=== PATIENT | female | born 1990 | race Caucasian/White ===

== ENCOUNTER 2022-12-29 16:37 | Emergency (ER) | payer SELFPAY ==
[~2022-12-29] VITALS: Ht 152.4 cm; Wt 47.7 kg
[2022-12-29 18:25] LABS: BASO # 0.05 K/mm3 (0.02-0.10); EOS # 0.22 K/mm3 (0.04-0.40); EOS % 2.8 % (1.0-5.0); HEMATOCRIT 45.9 % (37.0-47.0); HEMOGLOBIN 15.3 g/dL (12.5-16.0); LYMPH# 3.17 K/mm3 (1.50-4.00); MEAN CELL VOLUME 87 fl (78-100); MEAN CORPUSCULAR HEMOGLOBIN 29 pg (27-31); MEAN CORPUSCULAR HGB CONC 33 g/dL (33-37); MEAN PLATELET VOLUME 10.1 fl (7.4-10.4); MONO # 0.43 K/mm3 (0.20-0.80); NEU # 4.06 K/mm3 (1.40-6.50); PLATELET COUNT 328 K/mm3 (130-400); RED BLOOD COUNT 5.25 M/mm3 (4.10-5.30); RED CELL DISTRIBUTION WIDTH 11.8 % (11.5-14.5); WHITE BLOOD COUNT 7.9 K/mm3 (4.8-10.8)
[2022-12-29 18:29] LABS: ALBUMIN 4.4 g/dL (3.5-5.0)
[2022-12-29 18:30] LABS: POTASSIUM 3.7 mmol/L (3.5-5.1)
[2022-12-29 18:31] LABS: CALCIUM 9.7 mg/dL (8.3-10.5)
[2022-12-29 18:32] LABS: TOTAL PROTEIN 8.2 g/dL (6.4-8.3)
[2022-12-29 18:34] LABS: TOTAL BILIRUBIN 0.5 mg/dL (0.2-1.2)
[2022-12-29 18:42] LABS: URINE APPEARANCE CLEAR; URINE BILIRUBIN NEGATIVE (NEGATIVE); URINE BLOOD NEGATIVE (NEGATIVE); URINE COLOR YELLOW; URINE KETONE NEGATIVE (NEGATIVE); URINE LEUKOCYTE ESTERASE NEGATIVE (NEGATIVE); URINE NITRATE NEGATIVE (NEGATIVE); URINE PROTEIN(semi-quant) NEGATIVE (NEGATIVE); URINE UROBILINOGEN NORMAL (NORMAL); URINE WBC 0-1 /hpf (0-3)
[2022-12-29] MEDS ORDERED: GLUCOPHAGE PO (19:32)
[2022-12-29 20:00] VITALS: BP 141/109
== END 2022-12-29 20:00 | disposition home or self-care (01) ==
LOC: ED 16:37
PROVIDERS: Physician Assistant
DX: E11.65 Type 2 diabetes mellitus with hyperglycemia (principal)